=== PATIENT | female | born 1945 | race Caucasian/White ===

== ENCOUNTER 2025-05-31 12:35 | Outpatient (REF) | payer MEDICARE, BC, SELFPAY ==
--- OUTSIDE RECORDS SUMMARY | 2024-06-20 06:30 | XMS_ITS ---
Author Organization [facility] Address [address] [place] [address] Care Team Providers Care Beater Room Helper Name Role Phone Elizabeth Izaguirre Primary Care Provider Unavailabl Naomi Bean Unavailable [phone] Soledad Grant [phone] REASON FOR VISIT seen sooner Encounters Encounter Location Date Provider Diagnosis [address] [address] 06/20/2024 Soledad Grant Plan Of Treatment No Information Progress Notes * Leilani DURAND LDOB:[birth year] (79 yo F)Acc No.[id number]:06/20/2024 Progress Notes Patient: Leilani QURESHI Provider: Noemí Grant DPM :1945 A ge:78 Y S ex:Female Date:06/20/2024 Address:[address] [place], [place] [id number] Pcp:Elizabeth Izaguirre Subjective: * Chief Complaints: * 1 . Seen sooner. * Medical History: Objective: * Vitals: Assessment: Plan: * Treatment: * Images: * The named appointment provid er may or may not be the originator of this progress note, and it is not deemed complete until electronically signed by the appointment provider. Sign off status: Pending * Provider: Noemí Grant DPM Date: 06/20/2024 Generated for Printi ng/Faxing/eTransmitting on: 05/31/2025 03:02 PM EDT
--- OUTSIDE RECORDS SUMMARY | 2025-05-31 15:03 | XMS_ITS | Clinical Summary ---
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 90 each 2 05/05/2025 Active Active Problems Problem Noted Date Diagnosed Date Epidermoid cyst of skin 02/10/2025 Intertrigo 02/10/2025 Nonthrombocytopenic purpura ([facility] V24) 2024 Tinea pedis 02/10/2025 Fracture of inferior pubic ramus (CMS/HCC V24, [facility] V28) 10/13/2024 Prediabetes 06/11/2023 Disorder of pigmentation 02/12/2023 Hemangioma of skin and subcutaneous tissue 02/12 Melanocytic nevus 02/12/2023 Actinic keratosis 06/29/2019 Arthritis 06/29/2019 FHx: BRCA2 gene positive 06/29/2015 Adjustment disorder with mixed anxiety and depre ssed mood 07/14/2011 IBS (irritable bowel syndrome) 07/14/2011 Assessment & Plan (04/24/2025 5:46 PM EDT): Recommend KUB to reassess for constipation. - If positive consider starting laxative therapy for overflow diarrhea - If negative please complete stool samples Reviewed possibility of colonoscopy for further workup. Patient would prefer to avoid at this time if possible. Orders: Ambulatory referral to Gastroenterology XR Abdomen 1 View; Future Gastrointestinal pathogens molecular study; Future Pancreatic elastase 1; Future Calprotectin, stool; Future Clostridium difficile toxin; Future Osteopenia 01/13/2009 Tobacco use disorder 12/05/2008 Encounters Date Type Department Care Team Description 05/03/2025 Telephone Gastroenterology - [address] [phone] Rosaura Dempsey MA 04/25/2025 Telephone Gastroenterology - [address] [phone] Rosaura Dempsey MA 04/24/2025 10:58 AM EDT - 04/24/2025 11:59 PM EDT Hospital Encounter [facility] Xray [address] [place] [id number] Irritable bowel syndrome with diarrhea; Frequent diarrhea Discharge Disposition: Home or Self Care 04/24/2025 10:30 AM EDT Consult Gastroenterology - [address] [phone] Natacha Padilla PA Irritable bowel syndrome with diarrhea; Small intestinal bacterial overgrowth, unspecified 04/19/2025 11:58 AM EDT - 04/19/2025 11:59 PM EDT Hospital Encounter XR - [facility] [address] [place] [address] Acute pain of left knee Discharge Disposition: Home or Self Care 04/19/2025 11:30 AM EDT Office Visit Adult Medicine [address] [phone] May Leach PA Acute pain of left knee (Primary Dx); Prediabetes 03/27/2025 2:26 PM EDT - 03/27/2025 11:59 PM EDT Hospital Encounter Radiology Department - [address] [phone] Abnormal mammogram Discharge Disposition: Home or Self Care 03/27/2025 2:26 PM EDT - 03/27/2025 11:59 PM EDT Hospital Encounter Radiology Department [address] [phone] Abnormal mammogram Discharge Disposition: Home or Self Care 03/13/2025 8:47 AM EDT - 03/13/2025 11:59 PM EDT Hospital Encounter Radiology Department [address] [phone] Encounter for screening mammogram for breast cancer Discharge Disposition: Home or Self Care 03/07/2025 11:30 AM EDT Office Visit Adult Medicine [address] [phone] May Leach PA Irritable bowel syndrome with diarrhea (Primary Dx); Frequent diarrhea; Psychosocial stressors 03/02/2025 Nurse Triage Adult [address] [phone] Elizabeth Izaguirre MD from Last 3 Months Immunizations Name Administration Dates Next Due [employer] SARS-CoV-2 COVID-19, mRNA, LNP-S, preservative free 11/23/2020,10/23/2020 Rabies Vaccine, For Intramus cular Injection Retired Code 05/13/2011,05/11/2011 Tdap Tetanus diptheria acell ular pertussis (Boostrix; Adacel) 7yo and older 05/11/2011 Surgical History Surgery Date Site/Laterality Comments COLONOSCOPY 02/2016 PROCEDURE: HISTORICAL COLONOSCOPY; COMMENT: diverticulosis, hemorrhoids BREAST BIOPSY 2014 Left PROCEDURE: BX BREAST; PERC NEEDLE CORE W/IMAG GUID; COMMENT: neg OTHER SURGICAL HISTORY 2020 PROCEDURE: HISTORY OTHER; COMMENT: GALLSTONE REMOVAL CHOLECYSTECTOMY ERCP 09/28/2020 - 09/27/2021 Family History Medical History Relation Name Comments Breast cancer Daughter Diabetes Mother Stomach cancer Other mothers side , uncle, spread to esophagus Throat cancer Other mothers side u ncle/mothers side uncle Relation Name Status Comments Daughter Alive Mother Other Social History Tobacco Use Types Packs/Day Years Used Date Smoking Tobacco: Former Cigarettes 0.1 64.6 S tarted: 1960 Smokeless Tobacco: Never Tobacco Cessation:Counseling Given: Not Answered Alcohol Use Standard Drinks/Week Comments Never 0 (1 standard drink = 0.6 oz pur e alcohol) Housing Instability Answer Date Recorde d Are you worried that in the next 2 months you may not have stable housing? No 05/29/2025 Food Access & Nutrition Answer Date Rec orded Do you have access to a vari ety of food including fruits and vegetables? Yes 05/29/2025 Health Literacy Answer Date Recorded How often do you need to hav e someone help you when you read instructions, pamphlets, or other written material from your doctor or pharmacy? Sometimes 05/29/2025 Caregiver: How often do you need to have someone help you when you read instructions, pamphlets, or other written material from your doctor or pharmacy? Not on file 05/29/2025 Financial Risk Answer Date Recorded How hard is it for you to pa y for the very basics like food, housing, medical care, and air conditioning / heating? Somewhat hard 05/29/2025 Transportation Answer Date Recorded Has the lack of transportati on kept you from meetings, work, or from getting things needed for daily living? No Has the lack of transportati on kept you from medical appointments or from getting medications? No 05/29/2025 Social Isolation Answer Date Recorded How often do you feel lonely or isolated from those around you? Sometimes 05/29/2025 Food Risk Answer Date Recorded Within the past 12 months we worried whether our food would run out before we got money to buy more. Sometimes true 025 Within the past 12 months th e food we bought just didn't last and we didn't have money to get more. Patient declined 09/2024 Dependent Care Answer Date Recorded Do you need help finding or paying for care for your loved ones. For example, child care assistant or elderly care for an older adult? No 05/29/2025 Education Answer Date Recorded Do you think completing more education or training, like finishing a GED, going to college, or learning a trade, would be helpful for you? Yes 05/29/2025 Employment and Income Answer Date Recor ded During the last four weeks, have you been actively looking for work? No 05/29/2025 Living Situation Answer Date Recorded What is your living situation? 0 05/29/2025 Comments Unknown Sex and Gender Information Value Date Recorded Sex Assigned at Not on file Legal Sex Female 3:09 PM EST Gender Identity Not on file Sexual Orientation Not on file Obstetrics History Para Term AB IAB SAB Ectopic Multiple Livin g Live Births 1 1 1 1 Date Outcome GA Total Labor Labor/2nd/3rd Weight Sex Type Anes PTL Tasha A1 A5 Name Clin Term Last Filed Vital Signs Vital Sign Reading Time Taken Comments Blood Pressure 130/70 04/19/2025 11:29 AM EDT Pulse 74 04/19/2025 11:29 AM EDT Temperature 36.3 C (97.4 F) 04/19/2025 11:29 AM EDT Respiratory Rate 12 04/19/2025 11:29 AM EDT Oxygen Saturation - - Inhaled Oxygen Concentration - - Weight 64.9 kg (143 lb) 04/24/2025 10:10 AM EDT Height 162.6 cm (5' 4 ) 04/24/2025 10:10 AM EDT Body Mass Index 24.55 04/24/2025 10:10 AM EDT Plan of Treatment Upcoming Encounters Date Type Department Care Team (Late st Contact Info) Description 06/02/2025 10:30 AM EDT Consult Adult Medicine [address] [phone] Elizabeth Izaguirre MD [address] [place] [address] 06/15/2025 12:45 PM EDT Office Visit Adult Medicine [address] [phone] May Leach PA [address] [place] [address] 07/14/2025 9:40 AM EDT Office Visit Gastroenterology - [address] [place] [address] Semaj Alcocer PA [address] [place] [address] 07/17/2025 9:30 AM EDT Appointment Radiology Department - [address] [phone] Health Maintenance Due Date Last Done Comments Zoster Vaccines (1 of 2) 1966 Pneumococcal Vaccine: 50+ Years (1 of 1 - PCV) 1997 DTaP,Tdap,and Td Vaccines (2 - Td or Tdap) 05/11/2021 05/11/2011 Falls Risk Assessment 09/07/2022 RSV Immunization Adult Patients (1 - 1-dose 75+ series) 2022 Medicare Annual Wellness Visit 02/14/2024 02/13/2023 COVID-19 Vaccine ( - season) 2025 07/29/2021, 11/23/2020, 10/23/2020 Influenza Vaccine (#1) 2025 Social Influencers of Health Screening 05/29/2026 05/29/2025 Cholesterol Screening (Lipid Panel) 06/09/2028 06/09/2023 Osteoporosis Screening (Bone Density Screening) 06/04/2032 06/04/2022 Hepatitis C Screening Completed 02/28/2016 Colorectal Cancer Screening: Colonoscopy Discontinued 03/18/2016 Breast Cancer Screening Discontinued 03/27/20 25, 03/13/2025, 03/02/2024, Additional history exists Depression Screening Completed 05/29/2025 HIB Vaccines Aged Out No longer eligi ble based on patient's age to complete this topic HPV Vaccines Aged Out No longer eligi ble based on patient's age to complete this topic Hepatitis A Vaccines Aged Out No long er eligible based on patient's age to complete this topic Hepatitis B Vaccines Aged Out No long er eligible based on patient's age to complete this topic IPV Vaccines Aged Out No longer eligi ble based on patient's age to complete this topic MMR Vaccines Aged Out No longer eligi ble based on patient's age to complete this topic Meningococcal ACWY Vaccine Aged Out N o longer eligible based on patient's age to complete this topic Meningococcal B Vaccine Aged Out No l onger eligible based on patient's age to complete this topic RSV Immunization Patients Under 20 months Aged Out No longer eligible based on patient's age to complete this topic Varicella Vaccines Aged Out No longer eligible based on patient's age to complete this topic Procedures Procedure Name Priority Date/Time Associated Diagnosis Comments CALPROTECTIN, STOOL Routine 04/26/2025 9 :35 AM EDT Irritable bowel syndrome with diarrhea PANCREATIC ELASTASE 1 Routine 04/26/2025 9:35 AM EDT Irritable bowel syndrome with diarrhea GASTROINTESTINAL PATHOGENS BY PCR Routine 04/26/2025 9:35 AM EDT Irritable bowel syndrome with diarrhea Small intestinal bacterial overgrowth, unspecified XR ABDOMEN 1 VIEW Routine 04/24/2025 11: 15 AM EDT Irritable bowel syndrome with diarrhea Frequent diarrhea HEMOGLOBIN A1C Routine 04/19/2025 12:31 PM EDT Prediabetes XR KNEE 4+ VIEWS LEFT Routine 04/19/2025 12:14 PM EDT Acute pain of left knee POC GLUCOSE Routine 04/19/2025 11:34 AM EDT Prediabetes US BREAST LIMITED RIGHT Routine 03/27/20 25 3:44 PM EDT Abnormal mammogram MG MAMMO DIGITAL DIAGNOSTIC W ALEIXS RIGHT Routine 03/27/2025 3:06 PM EDT Abnormal mammogram MG MAMMO DIGITAL SCREENING W ALEXIS BILAT Routine 03/13/2025 9:10 AM EDT Encounter for screening mammogram for breast cancer LIPID PANEL Routine 06/09/2023 DXA BONE DENSITY STUDY 1+ SITS AXIAL SKEL Routine 06/04/2022 1:54 PM EDT Other specified disorders of bone density and structure, unspecified site HM HEPATITIS C SCREENING Routine 02/28/2016 from Last 3 Months or Most Recently Relevant to Health Maintenance Results * Gastrointestinal pathogens molecular study (04/26/2025 9:35 AM EDT) Campylobacter Detection by PCR Not Detected Not Detected LAB MICROBIOLOGY METHOD 5 11:47 AM EDT [facility] Plesiomonas shigelloides Detection by PCR Not Detected Not Detected LAB MICROBIOLOGY METHOD 5 11:47 AM EDT [facility] Salmonella Detection by PCR Not Detected Not Detected LAB MICROBIOLOGY METHOD 5 11:47 AM EDT [facility] Vibrio Detection by PCR Not Detected Not Detected LAB MICROBIOLOGY METHOD 5 11:47 AM EDT [facility] Vibrio cholerae Detection by PCR Not Detected Not Detected LAB MICROBIOLOGY METHOD 5 11:47 AM EDT [facility] Yersinia enterocolitica Detection by PCR Not Detected Not Detected LAB MICROBIOLOGY METHOD 5 11:47 AM EDT [facility] Enteroaggregative E coli EAEC Detection by PCR Not Detected Not Detected LAB MICROBIOLOGY METHOD 5 11:47 AM EDT [facility] Enteropathogenic E coli EPEC Detection Not Detected Not Detected LAB MICROBIOLOGY METHOD 5 11:47 AM EDT [facility] Enterotoxigenic E coli ETEC LTST Detection Not Detected Not Detected LAB MICROBIOLOGY METHOD 5 11:47 AM EDT [facility] Shiga-like toxin producing E coli STEC STX1 STX2 Det Not Detected Not Detected LAB MICROBIOLOGY METHOD 5 11:47 AM EDT [facility] Shigella Enteroinvasive E coli EIEC Detection Not Detected Not Detected LAB MICROBIOLOGY METHOD 5 11:47 AM EDT [facility] Cryptosporidium Detection by PCR Not Detected Not Detected LAB MICROBIOLOGY METHOD 5 11:47 AM EDT [facility] Cyclospora cayetanensis Detection by PCR Not Detected Not Detected LAB MICROBIOLOGY METHOD 5 11:47 AM EDT [facility] Entamoeba histolytica Detection by PCR Not Detected Not Detected LAB MICROBIOLOGY METHOD 5 11:47 AM EDT [facility] Giardia lamblia Detection by PCR Not Detected Not Detected LAB MICROBIOLOGY METHOD 5 11:47 AM EDT [facility] Adenovirus F 40 41 Detection by PCR Not Detected Not Detected LAB MICROBIOLOGY METHOD 5 11:47 AM EDT [facility] Astrovirus Detection by PCR Not Detected Not Detected LAB MICROBIOLOGY METHOD 5 11:47 AM [facility] Norovirus GI GII Detection by PCR Not Detected LAB MICROBIOLOGY METHOD 5 11:47 AM [facility] Sapovirus Detection by PCR Not Detected Not Detected LAB MICROBIOLOGY METHOD 5 11:47 AM [facility] Rotavirus A Detection by PCR Not Detected Not Detected LAB MICROBIOLOGY METHOD 5 11:47 AM [facility] Stool Rectum structure / Unknown Non-blood Collection / Unknown 04/26/2025 9:35 AM EDT 04/26/2025 10:06 AM EDT [facility] - 04/26/2025 11:47 AM EDT PCR testing is much more sensitive than traditional techniques and allows for the detection of low numbers of stool pathogens. The clinical correlation of PCR results with the need for treatment and clinical outcomes has not been established. Therefore the results of PCR testing for stool pathogens must be taken into clinical context when making treatment decisions. This is a diagnostic test only, repeat testing for cure is not advised. You may consider infectious disease consult for additional guidance. Testing Performed by [employer] us Natacha PABLO LAB MICROBIOLOGY - GENERAL ORDE SACHA Final Result [facility] [address] [place] [address], * Pancreatic elastase 1 (04/26/2025 9:35 AM EDT) Pancreatic Elastase 1 1610.0 >200 mcg/g 04/28/2025 2:30 PM EDT [facility] Comment: Adult and Pediatric Referance Ranges for Pancreatic Elastase-1: Normal: >200 mcg/g Moderate Pancreatic Insufficiency: 100-200 mcg/g Severe Pancreatic Insufficiency: <100 mcg/g Test performed at [facility], [address], [place] [address] Kiara Oakes MD, PhD - [employer] Stool Rectum structure / Unknown Non-blood Collection / Unknown 04/26/2025 9:35 AM EDT 04/26/2025 10:06 AM EDT Natacha Padilla [place] [facility] BODY FLUIDS AND STOOLS ORDE RABLES Final Result [facility] [address] [place] [address] * (ABNORMAL) Calprotectin, stool (04/26/2025 9:35 AM EDT) Calprotectin, Fecal 65.4(H) <50 mcg/g 04/28/2025 2:30 PM EDT [facility] Comment: <50 mcg/g Normal 50 - 120 mcg/g Borderline >120 mcg/g Abnormal Borderline results suggest repeat testing in 4 to 6 weeks. Test performed at [facility], [address] , [place] [address] Kiara Oakes MD, PhD - [employer] Stool Rectum structure / Unknown Non-blood Collection / Unknown 04/26/2025 9:35 AM EDT 04/26/2025 10:06 AM EDT Natacha [facility] LAB BODY FLUIDS AND STOOLS ORDE RABLES Final Result [facility] [address] [place] [address] * XR Abdomen 1 View (04/24/2025 11:15 AM EDT) Anatomical Region Laterality Modality Body Radiographic Misty ging 04/24/2025 11:1 7 AM EDT Impressions 04/24/2025 11:18 AM EDT Nonobstructive bowel gas pattern. There is no radiographic evidence of constipation as questioned clinically. Code 47839 -------- FINAL REPORT -------- Dictated By: James Oconnell Dictated Date: 04/24/2025 11:17 ET Assigned Physician: James Oconnell Reviewed and Electronically Signed By: James Oconnell Signed Date: 04/24/2025 11:18 ET Workstation ID: [id number] Transcribed By: Self Edit Transcribed Date: 04/24/2025 11:17 ET Narrative 04/24/2025 11:18 AM EDT HISTORY: The patient is a 79-year-old female with inflammatory bowel disease. FINDINGS: Supine radiographs of the abdomen demonstrate surgical clips in the right upper quadrant likely consequent to cholecystectomy. There are degenerative changes of the lumbar spine. The bowel gas pattern is nonobstructive. The volume of fecal material is not unusually increased. No mass or radiopaque calculus is seen. Procedure Note James Oconnell MD - 04/24/2025 HISTORY: The patient is a 79-year-old female with inflammatory boweldisease. FINDINGS: Supine radiographs of the abdomen demonstrate surgical clips inthe right upper quadrant likely consequent to cholecystectomy. There aredegenerative changes of the lumbar spine. The bowel gas pattern isnonobstructive. The volume of fecal material is not unusually increased.No mass or radiopaque calculus is seen. IMPRESSION: Nonobstructive bowel gas pattern. There is no radiographic evidence ofconstipation as questioned clinically. Code 67347 -------- FINAL REPORT -------- Dictated By: James Oconnell Dictated Date: 04/24/2025 11:17 ET Assigned Physician: James Oconnell Reviewed and Electronically Signed By: James Oconnell Signed Date: 04/24/2025 11:18 ET Workstation ID: [id number] Transcribed By: Self Edit Transcribed Date: 04/24/2025 11:17 ET Natacha PABLO IMG XR PROCEDURES Final Result * Hemoglobin A1c (04/19/2025 12:31 PM EDT) Hemoglobin A1C 5.7 <6.5 % LAB CHEMISTRY METHOD 04/19/2025 9:53 PM EDT [facility] Mean Bld Glu Estim. 117 mg/dL LAB CHEMISTRY METHOD 04/19/2025 9:53 PM EDT [facility] Blood Venous blood specimen / Unknown Venipuncture / Unknown 04/19/2025 12:31 PM EDT 04/19/2025 12:31 PM EDT May PABLO LAB BLOOD ORDERABLES Final Res ult [facility] [address] [place] [address], [place] [phone] * XR Knee 4+ Views Left (04/19/2025 12:14 PM EDT) Anatomical Region Laterality Modality Lower Extremities, Knee Left Radiogra phic Imaging 04/19/2025 5:38 PM EDT Narrative 04/19/2025 5:39 PM EDT Left knee, 4 views. History pain laterally. There are calcifications in the medial and lateral menisci. There are small osteophytes in the patellofemoral compartments. There are small osteophytes in the intercondylar notch. No fractures, dislocations or effusion. CONCLUSIONS: Chondrocalcinosis. Mild degenerative changes. -------- FINAL REPORT -------- Dictated By: Sari Samuel Dictated Date: 04/19/2025 17:38 ET Assigned Physician: Sari Samuel Reviewed and Electronically Signed By: Sari Samuel Signed Date: 04/19/2025 17:39 ET Workstation ID: [id number] Transcribed By: Self Edit Transcribed Date: 04/19/2025 17:38 ET Procedure Note Sari Samuel MD - 04/19/2025 Left knee, 4 views. History pain laterally. There are calcifications in the medial and lateral menisci. There aresmall osteophytes in the patellofemoral compartments. There are smallosteophytes in the intercondylar notch. No fractures, dislocations oreffusion. CONCLUSIONS: Chondrocalcinosis. Mild degenerative changes. -------- FINAL REPORT -------- Dictated By: Sari Samuel Dictated Date: 04/19/2025 17:38 ET Assigned Physician: Sari Samuel Reviewed and Electronically Signed By: Sari Samuel Signed Date: 04/19/2025 17:39 ET Workstation ID: [id number] Transcribed By: Self Edit Transcribed Date: 04/19/2025 17:38 ET us May PABLO IMG XR PROCEDURES Final Result * (ABNORMAL) POC glucose manually resulted (04/19/2025 11:34 AM EDT) Glucose POC 141 mg/dL Blood Capillary blood specimen / Unknown 04/19/2025 11:34 AM EDT us May PABLO POINT OF CARE TEST ENTER/EDIT ORDERABLES Final Result * US Breast Limited Right (03/27/2025 3:44 PM EDT) Anatomical Region Laterality Modality Breast Right Ultrasound 03/27/2025 3:44 PM EDT Impressions 03/27/2025 3:48 PM EDT Probably benign fibroglandular opacity in the upper outer breast. No ultrasonographic correlation. Follow-up mammogram of the right breast in 6 months is recommended. Findings and recommendations were conveyed to the patient. BI-RADS CATEGORY: 3 - PROBABLY BENIGN RECOMMENDATION: Short Interval Follow-up is recommended for the Right Breast. Short Interval Follow-up is recommended for the Right Breast. Mammo Location: [facility], [address] [place] [address], [id number], . -------- FINAL REPORT -------- Dictated By: Sari Samuel Dictated Date: 03/27/2025 15:44 ET Assigned Physician: Sari Samuel Reviewed and Electronically Signed By: Sari Samuel Signed Date: 03/27/2025 15:48 ET Workstation ID: [id number] Transcribed By: Self Edit Transcribed Date: 03/27/2025 15:44 ET Narrative 03/27/2025 3:48 PM EDT Diagnostic mammogram of the right breast. Targeted right breast ultrasound. CLINICAL: 79 years old, Female, focal asymmetry in the upper outer right breast on screening mammogram from 03/13/2025. FINDINGS: MAMMOGRAPHY TECHNIQUE: Spot compression views of the right breast in CC and MLO projection as well as full field straight lateral view were obtained digitally with 2-D C views and 3-D mammogram (digital breast tomosynthesis). Computer-aided detection was utilized in evaluation of this exam (CAD). The density of concern in the upper outer right breast is some changing configuration and partially effaces on the additional views. No new suspicious abnormalities were identified. BREAST DENSITY: B - There are scattered areas of fibroglandular density. ULTRASOUND TECHNIQUE: Ultrasound of the upper outer right breast was performed. No cystic or solid masses or acoustic shadowing identified. Procedure Note Sari Samuel MD - 03/27/2025 Diagnostic mammogram of the right breast. Targeted right breastultrasound. CLINICAL: 79 years old, Female, focal asymmetry in the upper outer rightbreast on screening mammogram from 03/13/2025. FINDINGS: MAMMOGRAPHY TECHNIQUE: Spot compression views of the right breast in CC and MLOprojection as well as full field straight lateral view were obtaineddigitally with 2-D C views and 3-D mammogram (digital breasttomosynthesis). Computer-aided detection was utilized in evaluation ofthis exam (CAD). The density of concern in the upper outer right breast is some changingconfiguration and partially effaces on the additional views. No newsuspicious abnormalities were identified. BREAST DENSITY: B - There are scattered areas of fibroglandular density. ULTRASOUND TECHNIQUE: Ultrasound of the upper outer right breast was performed. Nocystic or solid masses or acoustic shadowing identified. IMPRESSION: Probably benign fibroglandular opacity in the upper outer breast. Noultrasonographic correlation. Follow-up mammogram of the right breast in6 months is recommended. Findings and recommendations were conveyed tothe patient. BI-RADS CATEGORY: 3 - PROBABLY BENIGN RECOMMENDATION: Short Interval Follow-up is recommended for the Right Breast. ShortInterval Follow-up is recommended for the Right Breast. Mammo Location: [facility], [address] [place] [address], [phone], . -------- FINAL REPORT -------- Dictated By: Sari Samuel Dictated Date: 03/27/2025 15:44 ET Assigned Physician: Sari Samuel Reviewed and Electronically Signed By: Sari Samuel Signed Date: 03/27/2025 15:48 ET Workstation ID: [id number] Transcribed By: Self Edit Transcribed Date: 03/27/2025 15:44 ET us Elizabeth Izaguirre MD IMG US PROCEDURES Final Result * MG Mammo Digital Diagnostic w Alexis Right (03/27/2025 3:06 PM EDT) Anatomical Region Laterality Modality Breast Right Mammography 03/27/2025 3:44 PM EDT Impressions 03/27/2025 3:48 PM EDT Probably benign fibroglandular opacity in the upper outer breast. No ultrasonographic correlation. Follow-up mammogram of the right breast in 6 months is recommended. Findings and recommendations were conveyed to the patient. BI-RADS CATEGORY: 3 - PROBABLY BENIGN RECOMMENDATION: Short Interval Follow-up is recommended for the Right Breast. Short Interval Follow-up is recommended for the Right Breast. Mammo Location: [facility], [address] [place] [address], [id number], . -------- FINAL REPORT -------- Dictated By: Sari Samuel Dictated Date: 03/27/2025 15:44 ET Assigned Physician: Sari Samuel Reviewed and Electronically Signed By: Sari Samuel Signed Date: 03/27/2025 15:48 ET Workstation ID: [id number] Transcribed By: Self Edit Transcribed Date: 03/27/2025 15:44 ET Narrative 03/27/2025 3:48 PM EDT Diagnostic mammogram of the right breast. Targeted right breast ultrasound. CLINICAL: 79 years old, Female, focal asymmetry in the upper outer right breast on screening mammogram from 03/13/2025. FINDINGS: MAMMOGRAPHY TECHNIQUE: Spot compression views of the right breast in CC and MLO projection as well as full field straight lateral view were obtained digitally with 2-D C views and 3-D mammogram (digital breast tomosynthesis). Computer-aided detection was utilized in evaluation of this exam (CAD). The density of concern in the upper outer right breast is some changing configuration and partially effaces on the additional views. No new suspicious abnormalities were identified. BREAST DENSITY: B - There are scattered areas of fibroglandular density. ULTRASOUND TECHNIQUE: Ultrasound of the upper outer right breast was performed. No cystic or solid masses or acoustic shadowing identified. Procedure Note Sari Samuel MD - 03/27/2025 Diagnostic mammogram of the right breast. Targeted right breastultrasound. CLINICAL: 79 years old, Female, focal asymmetry in the upper outer rightbreast on screening mammogram from 03/13/2025. FINDINGS: MAMMOGRAPHY TECHNIQUE: Spot compression views of the right breast in CC and MLOprojection as well as full field straight lateral view were obtaineddigitally with 2-D C views and 3-D mammogram (digital breasttomosynthesis). Computer-aided detection was utilized in evaluation ofthis exam (CAD). The density of concern in the upper outer right breast is some changingconfiguration and partially effaces on the additional views. No newsuspicious abnormalities were identified. BREAST DENSITY: B - There are scattered areas of fibroglandular density. ULTRASOUND TECHNIQUE: Ultrasound of the upper outer right breast was performed. Nocystic or solid masses or acoustic shadowing identified. IMPRESSION: Probably benign fibroglandular opacity in the upper outer breast. Noultrasonographic correlation. Follow-up mammogram of the right breast in6 months is recommended. Findings and recommendations were conveyed tothe patient. BI-RADS CATEGORY: 3 - PROBABLY BENIGN RECOMMENDATION: Short Interval Follow-up is recommended for the Right Breast. ShortInterval Follow-up is recommended for the Right Breast. Mammo Location: [facility], [address] [place] [address], [phone], . -------- FINAL REPORT -------- Dictated By: Sari Samuel Dictated Date: 03/27/2025 15:44 ET Assigned Physician: Sari Samuel Reviewed and Electronically Signed By: Sari Samuel Signed Date: 03/27/2025 15:48 ET Workstation ID: [id number] Transcribed By: Self Edit Transcribed Date: 03/27/2025 15:44 ET us Elizabeth Izaguirre MD IMG BI PROCEDURES Final Result * (ABNORMAL) MG Mammo Digital Screening w Alexis bilat (03/13/2025 9:10 AM EDT) Anatomical Region Laterality Modality Breast Bilateral Mammography 03/13/2025 6:23 PM EDT Impressions 03/13/2025 6:33 PM EDT 1. Left: No mammographic evidence of malignancy 2. Right: Indeterminate upper outer middle depth focal asymmetry 3. Scattered fibroglandular tissue BI-RADS CATEGORY: 0 - INCOMPLETE - NEED ADDITIONAL IMAGING EVALUATION RECOMMENDATION: Additional right breast imaging recommended. Right breast CC and MLO spot compression, full-field ML, targeted ultrasound Mammo Location: [facility], [address] [place] [address], [phone], . -------- FINAL REPORT -------- Dictated By: Beulah Russell Dictated Date: 03/13/2025 18:23 ET Assigned Physician: Beulah Russell Reviewed and Electronically Signed By: Beulah Russell Signed Date: 03/13/2025 18:33 ET Workstation ID: [id number] Transcribed By: Self Edit Transcribed Date: 03/13/2025 18:23 ET Narrative 03/13/2025 6:33 PM EDT A BILATERAL DIGITAL 3D SCREENING MAMMOGRAPHY HISTORY: Routine screening. Family history of breast cancer in daughter COMPARISON: Multiple priors dating back to 06/27/2020 Technique: Bilateral full field digital mammography (3D) was performed using standard CC and MLO projections CAD was used to evaluate this mammogram. FINDINGS: Right: Indeterminate upper outer middle depth focal asymmetry Left: No suspicious masses, groups of microcalcification or areas of architectural distortion identified. Stable typically benign parenchymal asymmetries. BREAST DENSITY: B - There are scattered areas of fibroglandular density. Procedure Note Beulah Russell MD - 03/13/2025 A BILATERAL DIGITAL 3D SCREENING MAMMOGRAPHY HISTORY: Routine screening. Family history of breast cancer in daughter COMPARISON: Multiple priors dating back to 06/27/2020 Technique: Bilateral full field digital mammography (3D) was performedusing standard CC and MLO projections CAD was used to evaluate this mammogram. FINDINGS: Right: Indeterminate upper outer middle depth focal asymmetry Left: No suspicious masses, groups of microcalcification or areas ofarchitectural distortion identified. Stable typically benign parenchymalasymmetries. BREAST DENSITY: B - There are scattered areas of fibroglandular density. IMPRESSION: 1. Left: No mammographic evidence of malignancy 2. Right: Indeterminate upper outer middle depth focal asymmetry 3. Scattered fibroglandular tissue BI-RADS CATEGORY: 0 - INCOMPLETE - NEED ADDITIONAL IMAGING EVALUATION RECOMMENDATION: Additional right breast imaging recommended. Right breast CC and MLO spotcompression, full-field ML, targeted ultrasound Mammo Location: [facility], [address] [place] [address], [id number], . -------- FINAL REPORT -------- Dictated By: Beulah Russell Dictated Date: 03/13/2025 18:23 ET Assigned Physician: Beulah Russell Reviewed and Electronically Signed By: Beulah Russell Signed Date: 03/13/2025 18:33 ET Workstation ID: [id number] Transcribed By: Self Edit Transcribed Date: 03/13/2025 18:23 ET Elizabeth Izaguirre MD IMG BI PROCEDURES Final Result * (ABNORMAL) Lipid panel (06/09/2023) LDL/HDL Ratio 4 0 - 4 Triglycerides 139 0 - 150 mg/dL Cholesterol 240(A) 0 - 200 mg/dL HDL 67 >=40 mg/dL LDL Cholesterol 146(A) 0 - 100 mg/dL Blood Venous blood specimen / Unknown Historical Provider LAB BLOOD ORDERABLES Bree l Result * DXA BONE DENSITY STUDY 1+ SITS AXIAL SKEL (06/04/2022 1:54 PM EDT) Anatomical Region Laterality Modality Bone Densitometr y 08/06/2021 3:38 PM EST Narrative 06/04/2022 2:59 PM EDT BONE DENSITY (DEXA) Lumbar Spine T-score is -1.2. (SD relative to 20-29 y/o adult) Z-score is 1.2. (SD relative to age matched peers) This is considered osteopenia by WHO criteria. Left Hip T-score is -1.3. Z-score is 0.7. This is considered osteopenia by WHO criteria. Lateral view of the spine demonstrates vertebral heights to be maintained. IMPRESSION: This patient is considered to have osteopenia by WHO criteria. This patient has a 20% risk of major osteoporotic fracture and a 12% risk of hip fracture over the next 10 years. (World Health Organization Fracture Risk Assessment) The [facility] Department of Internal Medicine recommends using National Osteoporosis Foundation (NOF) guidelines in treatment decisions related to osteoporosis. NOF guidelines suggest considering treatment for postmenopausal women and men aged 50 or older presenting with the following: History of hip or vertebral fracture. T-score = -2.5 (DXA) at the femoral neck, total hip, or spine, after appropriate evaluation to exclude secondary causes. Low bone mass (T-score between -1.0 and -2.5 at the femoral neck or spine) AND a 10-year probability of a hip fracture = 3% OR a 10-year probability of a major osteoporosis-related fracture = 20% based on the [place]-adapted WHO algorithm Please note that all treatment decisions require clinical judgment and consideration of individual patient factors, including patient preferences, co-morbidities, previous drug use, risk factors not captured in the FRAX model (e.g., frailty, falls, vitamin D deficiency, increased bone turnover, interval significant decline in bone density) and possible under- or over-estimation of fracture risk by FRAX. Optional alternative screening schedule based on lucas Benjamin., [facility], [place] October 16, 2011 for patients with osteopenia (based on hip BMD T-score) is as follows: * advanced osteopenia (T scores -2.00 to -2.49), BMD testing every year * moderate osteopenia (T scores -1.50 to -1.99), BMD testing every 5 years mild osteopenia or normal BMD (T scores -1.50 and higher), BMD testing every 15 years Procedure Note Leigh Ann gAustin MD - 09/16/2022 BONE DENSITY (DEXA) Lumbar Spine T-score is -1.2. (SD relative to 20-29 y/o adult) Z-score is 1.2. (SD relative to age matched peers) This is considered osteopenia by WHO criteria. Left Hip T-score is -1.3. Z-score is 0.7. This is considered osteopenia by WHO criteria. Lateral view of the spine demonstrates vertebral heights to bemaintained. IMPRESSION: This patient is considered to have osteopenia by WHO criteria. Thispatient has a 20% risk of major osteoporotic fracture and a 12% risk of hip fracture over the next10 years. (World Health Organization Fracture Risk Assessment) The [facility] Department of Internal Medicine recommendsusing National Osteoporosis Foundation (NOF) guidelines in treatment decisions related toosteoporosis. NOF guidelines suggest considering treatment for postmenopausal women and menaged 50 or older presenting with the following: History of hip or vertebral fracture. T-score = -2.5 (DXA) at the femoral neck, total hip, or spine, afterappropriate evaluation to exclude secondary causes. Low bone mass (T-score between -1.0 and -2.5 at the femoral neck or spine)AND a 10-year probability of a hip fracture = 3% OR a 10-year probability of a majorosteoporosis-related fracture = 20% based on the [place]-adapted WHO algorithm Please note that all treatment decisions require clinical judgment andconsideration of individual patient factors, including patient preferences, co- morbidities,previous drug use, risk factors not captured in the FRAX model (e.g., frailty, falls, vitaminD deficiency, increased bone turnover, interval significant decline in bone density) andpossible under- or over-estimation of fracture risk by FRAX. Optional alternative screening schedule based on arnoldo Benjamin al., NEJJanuary 2011 for patients with osteopenia (based on hip BMD T-score) is as follows: * advanced osteopenia (T scores -2.00 to -2.49), BMD testing every year * moderate osteopenia (T scores -1.50 to -1.99), BMD testing every 5years mild osteopenia or normal BMD (T scores -1.50 and higher), BMD testingevery 15 years Rebecca William NP IMG DXA PROCEDURES Final Resu lt * Hepatitis C Screening (02/28/2016) [facility] Hepatitis C Screening abstracted Historical Provider HEALTH MAINTENANCE Final Result from Last 3 Months or Most Recently Relevant to Health Maintenance Insurance MEDICARE [facility] Care Teams 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
--- OUTSIDE RECORDS SUMMARY | 2025-05-31 15:03 | XMS_ITS | Patient Health Record ---
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 Role Phone Elizabeth Izaguirre Primary Care Provider UnavailKeven Saldanamie Unavailable [phone] JovanaSoledad berg Unavailable [phone] Allergies No Known Allergies Reason For Referral No Information Medications Medication SIG (Take, Route, Frequency, Duration) Notes Start Date End Date Status Ciclopirox 8 % 1 application Retail Supervisor ally Once a day; Duration: 04/20/2024 Active Ciclodan 8 % 1 application Retail Supervisor ally Once a day; Duration: 04/20/2024 Active Night Splint AFO - L1930 1 wear at rest; Duration: 30 days Active Ciclopirox Olamine 0.77 % 1 application Externally Twice a day; Duration: 30 days Active Social History Tobacco Use: Social History Observation Description Date Details (start date - stop date) Former Smoker NA - NA Tobacco Use/Smoking Question Answer Notes Are you a: former smoker Additional Findings: Tobacco User Heavy cigarett e smoker (20-39 cigs/day) Additional Findings: Tobacco Non-User Ex-heavy c igarette smoker (20-30/day) Alcohol Screen Question Answer Notes Did you have a drink containing alcohol in the p ast year? No Points 0 Interpretation Negative Tobacco use other than smoking: Question Answer Notes Are you an other tobacco user? 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) Active confirmed Problem Myositis of left foot (6070731569035566 4) Other myositis of left foot (M60.872) Active confirmed Problem Plantar fascial fibromatosis (78625284) Plantar fasciitis, bilateral (M72.2) Active confirmed Vital Signs Height 5 ft 4 in in 06/15/2024 Weight 144 lbs 06/15/2024 BMI 24.71 kg/m2 06/15/2024 Encounters Encounter Location Date Provider Diagnosis [facility] [address] [phone] 06/15/2024 Naomi Black Pain in right foot M79.671 ; Plantar fasciitis, bilateral M72.2 ; Other myositis of right foot M60.871 ; Pain in left foot M79.672 ; Other myositis of left foot M60.872 and Tinea pedis of both feet B35.3 Assessments Encounter Date Diagnosis (ICD Code) Assessment Notes Treatment Notes Treatment Clinical Notes Section Notes 06/15/2024 Pain in right foot (ICD-10 - M79.671) 06/15/2024 Plantar fasciitis, bilateral (ICD-10 - M72.2) 06/15/2024 Other myositis of right foot (ICD-10 - M60.871) 06/15/2024 Pain in left foot (ICD-10 - M79.672) 06/15/2024 Other myositis of left foot (ICD-10 - M60.872) 06/15/2024 Tinea pedis of both feet (ICD-10 - B35.3) Plan Of Treatment Pending Test Test Name Order Date [id number] NAIL, 6 OR MORE 04/20/2024 [id number] Plate 04/20/2024 Insurance Providers Payer Name Payer Address Payer Phone Subscriber Number Group Number Insured Name Patient Relationship to Insured Coverage Start Date Coverage End Date Medicare [employer] [address] [facility] [phone] [id number] Leilani Butler Self - patient is the insured [facility] [address] [place] [address] [phone] [id number] Leilani Butler Self - patient is the insured Medical (General) History Medical History History ICD Code Arthritis Back,Hip,and Knee pain Measles Chicken pox Surgical History Surgery Date(Month/Year) Gall bladder removal 1979
--- OUTSIDE RECORDS SUMMARY | 2025-05-31 15:03 | XMS_ITS ---
Author Name [facility] Organization Unknown Care Team Organization Name Specialty Phone Email Start Date End Da [facility] 05/17/2025 [facility] Elizabeth Izaguirre Primary Care 09/09/2023 024
== END 2025-05-31 12:36 | disposition home or self-care (01) ==
LOC: HO.SH 12:35
PROVIDERS: Visit Provider Internal Medicine
DX: Z01.118 Encounter for examination of ears and hearing with other abnormal findings (principal); H90.3 Sensorineural hearing loss, bilateral
CPT/HCPCS: 92557; 92567